=== PATIENT | male | born 1950 | race Caucasian/White ===

== ENCOUNTER → 2020-02-01 15:19 | Outpatient (BNVA) | payer MEDICARE, OTHER, SELFPAY | PROVIDERS: Family Provider Family Medicine; PCP Nurse Practitioner Family; Referring Provider Nurse Practitioner Family; Visit Provider Nurse Practitioner Family | DX: N40.0 Benign prostatic hyperplasia without lower urinary tract symptoms (principal) | CPT/HCPCS: 81001 ==

== ENCOUNTER → 2020-03-01 09:06 | Outpatient (BNVA) | payer MEDICARE, OTHER, SELFPAY | PROVIDERS: Family Provider Family Medicine; PCP Nurse Practitioner Family; Visit Provider Urology | DX: N40.1 Benign prostatic hyperplasia with lower urinary tract symptoms (principal); R10.31 Right lower quadrant pain; R33.9 Retention of urine, unspecified; K40.90 Unilateral inguinal hernia, without obstruction or gangrene, not specified as recurrent; F17.210 Nicotine dependence, cigarettes, uncomplicated | CPT/HCPCS: 81001 ==

== ENCOUNTER → 2020-03-24 11:44 | Outpatient (BNVA) | payer MEDICARE, OTHER, SELFPAY | PROVIDERS: Family Provider Family Medicine; PCP Nurse Practitioner Family; Visit Provider Urology | DX: I48.91 Unspecified atrial fibrillation (principal); R82.71 Bacteriuria; N40.1 Benign prostatic hyperplasia with lower urinary tract symptoms; R33.9 Retention of urine, unspecified | CPT/HCPCS: 80053; 81001; 87077; 87086; 87186 ==

== ENCOUNTER → 2020-03-31 13:34 | Outpatient (BNVA) | payer MEDICARE, OTHER, SELFPAY | PROVIDERS: Family Provider Family Medicine; PCP Nurse Practitioner Family; Visit Provider Urology | DX: Z11.59 Encounter for screening for other viral diseases (principal); N40.1 Benign prostatic hyperplasia with lower urinary tract symptoms | CPT/HCPCS: 87635 ==

== ENCOUNTER 2020-04-04 16:13 | Observation (INO) | payer MEDICARE, OTHER, SELFPAY ==
[2020-04-01 09:59] VITALS: BMI 33.9
--- NOTE | 2020-04-01 10:13 | ECG_ITS ---
[facility] Test Date: 2020-04-01 Pat Name: Gabriel Benjamin Department: Room: Gender: Male Staker Surveying: : 1950 Requested By: Martha Kat Order Number: [id number] [place] MD: Samuel Rodarte M.D. Measurements Intervals [place] Rate: 73 P: NV: -1 QRS: 70 QRSD: 86 T: 32 QT: 364 QTc: 403 Interpretive Statements ATRIAL FIBRILLATION NONSPECIFIC T-WAVE ABNORMALITY ABNORMAL RHYTHM ECG Compared to ECG 09/05/2015 12:26:35 T-wave abnormality now present Sinus rhythm no longer present Electronically Signed On 04-01-2020 20:40:04 CDT by Samuel Rodarte M.D. [id number]
--- NOTE | 2020-04-01 10:31 | ANES.PREANE2 ---
Pre-Anesthetic Assessment Pre-Anesthetic Assessment: Height/Weight: Height 1.8 m Weight 110.223 kg Preop Diagnosis: Refractory BPH/obstruction with elevated PVR Proposed Procedure: Operation Date: 04/04/20 13:25 Proposed Procedures p Cystoscopy 74299 N40.1(Not Applicable) - Osorio Parnell MD s Transurethral Resection/Vaporization Of Prostate(Not Applicable) - Osorio Parnell MD Familial anesthetic complications: Went into afib shortly after they administered anesthesia and they woke him up and did not do surgery and had to send him to hospital (was rotator cuff surgery at a surgery center) Social: Comment: smoke kristine Exam: Pre-Anes Outpt Exam: alert, oriented x 3, clear to auscultation bilaterally and regular rate & rhythm Airway: Cervical ROM: WNL MP: 2 Dentition: Partials CV/HEM: CV/HEM: Afib (on xarelto (stopping today 04/01)) and HTN Comments: has seen paleontological helper for A fib Anesthetic Plan: ASA status: 3 Anesthesia: General Risk of > 500 ml blood loss (7ml/kg in children): No PFSH Anesthesia PFSH: Medical History (Updated 03/28/20 @ 16:36 by Teresita Perkins APRN) Afib BPH loc w urin obs/LUTS Hypertension Surgical History H/O circumcision H/O colonoscopy 1.5 yrs ago H/O repair of rotator cuff Family History Mother , 60's Lung disease Father , 40's- unknown No problems noted. Sister Cancer Brother Hypertension Other Atrial fibrillation Denies family history of Anesthesia complication Bleeding disorder Social History Smoking and tobacco status: current every day smoker Alcohol intake: current Alcohol intake frequency: 0-2 Drinks per Day Last substance use date: 03/01/20 Other details last substance use: marijuana Household members: spouse Marital status: Current occupational status: retired History of recent travel: No Data Anesthesia Cardiac Studies: No Data to Display
[2020-04-04] VITALS (11 sets, daily range): BP systolic 102–131; BP diastolic 55–105; PULSE 74–115; RESP 13–20; TEMP 35.8–36.8; O2SAT 94–100
[2020-04-04] MEDS: sodium chloride 0.9% 1,000 ML 30 ML IV (11:39)
--- NOTE | 2020-04-04 12:00 | ANES.PREANE2 ---
Pre-Anesthetic Assessment Pre-Anesthetic Assessment: Height/Weight: Height 1.8 m Weight 110.223 kg Temp Pulse Resp BP Pulse Ox 98.3 F 88 18 131/85 95 04/04/20 11:21 04/04/20 11:21 04/04/20 11:21 04/04/20 11:21 04/04/20 11:21 Preop Diagnosis: Right inguinal hernia Proposed Procedure: Operation Date: 04/04/20 12:45 Proposed Procedures p Cystoscopy 40914 N40.1(Not Applicable) - Osorio Parnell MD s Transurethral Resection/Vaporization Of Prostate(Not Applicable) - Osorio Parnell MD s Laparoscopic Inguinal Hernia Repair(Right) - Gunnar Arroyo MD Was Beta Jes taken within 24 hours: Yes Last intake: Intake Last Liquid Date 04/04/20 Last Liquid Time 09:13 Last Solid Date 04/03/20 Last Solid Time 20:00 Social: Social History: No alcohol and No tobacco Exam: Pre-Anes Outpt Exam: alert, oriented x 3 and clear to auscultation bilaterally Additional Exam Findings (including area of procedure): Heart is irregularly irregular with controlled Vent Rate; no murmurs, gallops or rubs Airway: Submandibular: WNL Cervical ROM: WNL MP: 2 History/ROS: No significant complaints Pulmonary: Pulmonary: None reported CV/HEM: CV/HEM: Arrythmia and HTN : Comments: Chronic voiding difficulty Hepatic: Hepatic: None reported GI: GI: None reported Metabolic: Metabolic: None reported Musc/skel: Musc/skel: None reported Neuropsych: Neuropsych: None reported Anesthetic Plan: ASA status: 3 Anesthesia: General Meds/Allergies Current Medications: Current Medications Generic Name Dose Route Start Last Admin Trade Name Freq PRN Reason Stop Dose Admin Sodium Chloride 1,000 mls @ 30 ml s/hr 04/04/20 08:15 04/04/20 11:39 Sodium Chloride 0.9% IV 04/05/20 08:14 30 mls/hr .Q24H HUE Administration PFSH Anesthesia PFSH: Medical History (Updated 03/28/20 @ 16:36 by Teresita Perkins APRN) Afib BPH loc w urin obs/LUTS Hypertension Surgical History H/O circumcision H/O colonoscopy 1.5 yrs ago H/O repair of rotator cuff Family History Mother , 60's Lung disease Father , 40's- unknown No problems noted. Sister Cancer Brother Hypertension Other Atrial fibrillation Denies family history of Anesthesia complication Bleeding disorder Social History Smoking and tobacco status: current every day smoker Alcohol intake: current Alcohol intake frequency: 0-2 Drinks per Day Last substance use date: 03/01/20 Other details last substance use: marijuana Household members: spouse Marital status: Current occupational status: retired History of recent travel: No Data Anesthesia Cardiac Studies: No Data to Display
--- NOTE | 2020-04-04 12:09 | W.PM.OPSUD ---
Surgery/Procedure H&P Update DATE OF PROCEDURE: April 04, 2020 DATE H&P PERFORMED: 03/24/20 H&P UPDATE INFORMATION: I have reviewed H&P completed within last 30 days, I have examined patient prior to procedure, Changes to prior documentation as noted here and H&P is in [facility] EMR on date indicated CHANGES TO PREVIOUS DOCUMENTATION: Last dose of Xarelto was 03/31/2020. Reviewed procedure again. He expresses good understanding is ready to proceed. Dr. Arroyo will proceed with hernia repair prior to my portion. PREOP DIAGNOSIS: Right inguinal hernia/refractory BPH with obstruction PLANNED PROCEDURE: Operation Date: 04/04/20 12:45 Proposed Procedures p Cystoscopy 09118 N40.1(Not Applicable) - Osorio Parnell MD s Transurethral Resection/Vaporization Of Prostate(Not Applicable) - Osorio Parnell MD s Laparoscopic Inguinal Hernia Repair(Right) - Gunnar Arroyo MD
--- NOTE | 2020-04-04 12:53 | W.PM.OPSUD ---
Surgery/Procedure H&P Update DATE OF PROCEDURE: April 04, 2020 DATE H&P PERFORMED: 03/11/20 H&P UPDATE INFORMATION: I have reviewed H&P completed within last 30 days, I have examined patient prior to procedure and No changes to prior documentation PREOP DIAGNOSIS: Right inguinal hernia/refractory BPH with obstruction PLANNED PROCEDURE: Operation Date: 04/04/20 12:45 Proposed Procedures p Cystoscopy 07194 N40.1(Not Applicable) - Osorio Parnell MD s Transurethral Resection/Vaporization Of Prostate(Not Applicable) - Osorio Parnell MD s Laparoscopic Inguinal Hernia Repair(Right) - Gunnar Arroyo MD
[2020-04-04] MEDS: levofloxacin-dextrose 5 % 500 MG/100 ML PREMIX 100 MG IV (13:22)
--- NOTE | 2020-04-04 14:27 | PM.OP ---
Operative Report Date of procedure: April 04, 2020 Pre-op Diagnosis: Right inguinal hernia/refractory BPH with obstruction Post-op diagnosis: same Procedure Done: Cystoscopy, transurethral resection/vaporization of the prostate Specimens removed/disposition: Prostatic chips Pathology: Prostatic chips Surgeon: Soheila Anesthesia: General Estimated blood loss: Less than 50 cc. Urine output: Not measured Complications: None Findings: Huge prostate. Large intravesically protruding median lobe. Chronic severe trabeculation. Wide open the completion of the procedure with meticulous hemostasis. Condition: stable Disposition: PACU Brief History: Gabriel is a 69-year-old white male with a history of progressive bladder outlet obstructive symptoms secondary to BPH Cystoscopy revealed a huge prostate with large intravesically protruding median lobe and severely trabeculated bladder. He was also found to have a symptomatic hernia and really wanted that fixed and ultimately decided to pursue both at the same time under the same anesthesia. Procedure: After routine preoperative evaluation examination and obtaining of informed consent he was taken to the operating suite on 04/04/2020 where general anesthesia was administered without difficulty after appropriate timeout was performed, SCDs confirmed to be functioning, preoperative antibiotics administered, beta-loli protocol confirmed. Dr. Arroyo performed his laparoscopic hernia repair. See his dictation under separate cover After completion of Dr. Arroyo procedure the patient was reprepped and draped in usual sterile fashion in dorsolithotomy position. Careful attention was paid to avoiding pressure points. 21 Bahamian cystoscope with 30 degree lens was introduced into the urethra meatus and advanced into the bladder under videoscopy. Bladder was systematically examined and the findings described above were noted. The orifices were easily identified. Urethra was then calibrated with Yokasta sounds and easily accommodated 30 Bahamian. 2% lidocaine jelly was instilled into the urethra then a 25 Bahamian continuous flow resectoscope sheath with visual obturator in place was advanced into the bladder without difficulty. The gyrus bipolar system was utilized for resection with the supersect and the button probe. Resection was begun at the large intravesically protruding median lobe. Lateral resection of the lobe with visualization of the orifices was initially conducted. The lobe was then resected from the most anterior aspect down to the circular fibers of the bladder neck for completion. This was carried into the floor the prostate. The orifices were confirmed to be well away from resection throughout the procedure. The left lateral lobe was then resected beginning at the 12 o'clock position from the bladder neck out to the verumontanum. Deep trough was made anteriorly and then resection was conducted from the 12:00 down to the 5 o'clock position in the same longitudinal extent and depth down to the surgical capsule. The right lateral lobe was then resected in the same fashion. There remained a large amount of posterior floor tissue and this was resected in the same fashion with the supersect. Chips were all evacuated from the bladder. The button probe was used then to vaporize a fair amount of tissue is well out to but not distal to the verumontanum, further opening of the bladder neck, and posterior and lateral lobe residual tissue. Hemostasis was visually confirmed. Bladder was drained with a 22 Bahamian three-way Echevarria catheter 30 cc placed in the balloon and irrigation confirmed no clots and clear efflux. Tolerated the procedure well without complications and was awakened in the operating room and returned to the recovery room in stable condition. Light CBI was continued with clear reflux with flow rate. PLANS: 1. Admit to observation status. 2. Pending status of urine tomorrow catheter might be removed for voiding trial or potentially send him home with catheter in place for couple days for further healing before voiding trial in the clinic.
[2020-04-04] MEDS: lidocaine 2% Urojet 20 mL TOPICAL (15:00)
--- NOTE | 2020-04-04 16:22 | PM.PACU ---
PACU note PACU note: VSS, good respiratory effort Post-Anesthesia Exam: awake Disposition: admitted
--- NOTE | 2020-04-04 16:56 | P.OP_ITS ---
Operative Report Date of procedure: April 04, 2020 Pre-op Diagnosis: Right inguinal hernia/refractory BPH with obstruction Post-op Findings: Indirect reducible right inguinal hernia Procedure Done: Laparoscopic total extraperitoneal repair of right indirect inguinal hernia with surgimax 3D mesh measuring 11 x 16 cm Excision of lipoma of the spermatic cord Pathology: none sent Surgeon: Gunnar Arroyo Anesthesia: General Condition: stable Disposition: PACU Procedure: The patient was taken to the operating room. After IV antibiotic was administered, the abdomen was prepped and draped in a sterile manner. Using a 15 blade, a 1.0 cm transverse incision was made infraumbilically on the right side. Subcutaneous tissue was divided using electrocautery and the anterior rectus sheath divided using an 11 blade. The rectus muscle was retracted l aterally and the extraperitoneal space identified. A 11 mm port was placed and 12 mm of pneumoperitoneum was created. A 10 mm 30? scope was introduced and the retrorectus space was opened using the camera up to the pubic symphysis and 5 mm ports were placed in the midline, one 2-fingerbreadths above the pubic symphysis and the other midway between these two ports under direct visualization. Blunt dissection was carried out to open up the tissue in the midline and to the pubic symphysis, which was identified. The dissection was then carried laterally where the iliopubic tract was identified. There was no femoral, obturator or direct hernia noted. The inferior epigastric artery was identified and dissection was carried posterior to it and laterally, the space was opened up to the level of the umbilicus superior to the anterior superior iliac spine. I then proceeded to dissect out the spermatic cord and the indirect hernial sac was reduced. There was a lipoma of the spermatic cord which was excised. 16 x 11cm Surgimax 3D mesh was rolled and introduced through the 10 mm port and then rolled laterally and apposed well against the abdominal wall to cover the myopectineal orifice completely. the mesh was secured to the abdominal wall with Securestraps. 10 Cc of 0.5% Marcaine was infiltrated into the preperitoneal space. The extraperitoneal space was desufflated under direct visualization to ensure no slippage of hernial sac under the mesh. All ports were removed, the anterior rectus fascia at the infraumbilical port closed using figure of eight 0 Vicryl sutures, subcutaneous tissue approximated using 3-0 Vicryl sutures and skin at all three port sites were closed using running subcuticular 4-0 Monocryl sutures and Dermabond. 10 mL of 0.5% Marcaine was infiltrated at the port sites. The patient was stable throughout the procedure. Please refer to Dr. Parnell's note for the rest of the procedure
[2020-04-04] MEDS: dextrose 5%-ns + KCl 20 20 MEQ/1,000 ML BAG 50 MEQ IV (17:15)
[2020-04-04] MEDS: sulfamethoxazole-trimeth DS 160-800 mg Tablet 1 TAB PO (17:27)
[2020-04-04] MEDS: HYDROcodone-acetaminophen 5-325 mg Tablet 1 TAB PO ×2 (17:38→23:00)
--- NOTE | 2020-04-04 17:59 | PC.NURSE ---
2 stabs noted to lower medial abdomen and 1 incision noted to umbilical. all incisions open to air.
[2020-04-05] VITALS: BP 104/70; PULSE 87; RESP 18; TEMP 36.3; O2SAT 98
--- NOTE | 2020-04-05 00:21 | PC.NURSE ---
CBI WAS STARTED BY SURGERY, NO DOCUMENTATION WAS DONE, AND THEN THE SAME BAGS FROM THE DAY FINISHED UP ON MOVER, SO THE OUTPUT MAY NOT BE EXACTLY ACCURATE.
[2020-04-05 04:00] VITALS: BP 101/72; PULSE 97; RESP 18; TEMP 36.5; O2SAT 97
[2020-04-05] MEDS: HYDROcodone-acetaminophen 5-325 mg Tablet 1 TAB PO ×3 (05:23→18:33)
--- NOTE | 2020-04-05 07:29 | ANE.PACU2 ---
Inpatient post-anesthesia follow up: Airway intact: Yes Vital signs: Temperature 97.7 F Pulse Rate 97 Respiratory Rate 18 Blood Pressure 101/72 Pulse Oximetry 97 Oxygen Delivery Me thod Room Air Oxygen Flow Rate 8 Fraction of Inspir ed Oxygen Hydration adequate: Yes Nausea and vomiting: No Pain level: 1 Mental status: Baseline
[2020-04-05 07:30] VITALS: BP 101/71; PULSE 88; RESP 18; TEMP 37.1; O2SAT 96
[2020-04-05] MEDS: metoprolol succinate ER (24 HR) 100 mg Tablet PO (08:38)
[2020-04-05] MEDS: tamsulosin 0.4 mg Capsule 0.8 MG PO (08:38)
[2020-04-05] MEDS: finasteride 5 mg Tablet PO (08:38)
[2020-04-05] MEDS: sulfamethoxazole-trimeth DS 160-800 mg Tablet 1 TAB PO ×2 (08:38→17:43)
[2020-04-05] MEDS: hydroCHLOROthiazide 25 mg Tablet 12.5 MG PO (08:38)
[2020-04-05] MEDS: timolol 0.5% Op Soln 5 mL Btl 1 DROP EYEAFF (09:25)
--- NOTE | 2020-04-05 09:57 | PC.CHAP ---
Pastoral Care Encounter/Spiritual Assessment Type of Contact [] Declined fortune teller visit [] Patient/Family/Request visit [] Outpatient visit [] Follow-up visit [] Physician referral [] Code/Alert [x] Routine visit [] Staff referral [] Actively dying [] Patient sleeping [] Family support [] [] Out of room [] Palliative care [] [] Receiving care in room [] Pre-surgical visit [] Trauma [] Long length of stay [] ICU visit [] Other: Relational/Emotional Strength [] Patient feels connected with others/family/visitors/staff [] Distress [] Loneliness/isolation [] Abandonment Spirituality of Patient [] Person of Jolie [] Attends Jain of their Jolie [] Believes in Prayer [] Reads Bible or Spiritism materials [] There are Spiritual issues to be addressed Aircraft Armament Mechanic Interventions [x] Prayer [x] Active listening [x] Non-anxious presence [x Spiritual/emotional support [] Crisis/trauma care [] Spiritual counseling [] Bereavement support [] Provided bereavement packet [] Provided Bible/devotional materials [] Provided toy/stuffed animal, coloring book to patient or family member [] Provided Communion [] Anointing/Fowler [] Salvation [x] Completed spiritual assessment [] Other: Impact on Illness or Injury [] Angry [] Fearful [] Anxious [] Often cries [] Exhaustion [] Unable to work [] Unable to attend denominational [] Unable to walk/stand [] Unable to read [] Unable to drive [] Unable to eat/drink [] Unable to sleep [] Unable to be with family [] Patient intubated [] Other: Summary doing better. wants to go home Time spent with patient 10 min
[2020-04-05 11:35] VITALS: BP 104/78; PULSE 84; RESP 18; TEMP 36.6; O2SAT 97
[2020-04-05 15:10] VITALS: BP 103/71; PULSE 90; RESP 18; TEMP 36.9; O2SAT 95
--- NOTE | 2020-04-05 18:18 | PM.DCS ---
Discharge Providers Date of Admission: 04/04/20 16:13 Date of Discharge: April 05, 2020 Attending Provider at Admission: Osorio Parnlel MD Attending Provider at Discharge: Osorio Parnell MD Primary Care Provider: Jayda Matrin NP Diagnoses at Discharge Discharge Diagnosis (1) BPH loc w urin obs/LUTS: Status: Acute Problem details: TURP 04/04/2020. (2) Right inguinal hernia: Status: Acute Problem details: Repaired laparoscopically by Dr. Arroyo on 04/04/2020 (3) Incomplete bladder emptying: Status: Acute Problem details: Secondary to BPH/obstruction Reason for Visit Reason for Visit: cystoscopy Hospital Course Discharge Summary: The operative procedures went well. On postoperative day #1 his Echevarria catheter was removed and he voided spontaneously with clearing urine and good emptying. Discharge on the evening of postoperative day #1 in stable condition. To hold Xarelto until 04/07/2020 evening. If urine becomes bloody to hold longer. Call has been encouraged if he has any questions. Physical Exam Const: COMMON NORMALS: no acute distress, alert and well nourished GENERAL APPEARANCE: well kempt and well developed ORIENTATION/CONSCIOUSNESS: not confused Resp: COMMON NORMALS: normal respiratory effort EFFORT & INSPECTION: No labored and No Actively coughing Neuro: SENSORIUM/ORIENTATION: Yes alert Psych: COMMON NORMALS: mental status grossly normal APPEARANCE: Yes grossly normal and Yes well kempt ATTITUDE: Yes calm and Yes engaged Urinary Catheter Management^: 3-way Urethral CBI: Cath Placed During This Visit: yes, but has since been removed by the nurse Reason for Continuing Indwelling Catheter: Other Urinary Catheter Date of Insertion: 04/04/20 Urinary Catheter Time of Insertion: 16:06 Date Urinary Catheter Removed: 04/05/20 Time Urinary Catheter Discontinued: 08:13 Discharge Data Data Completed and Pending: Pending at discharge Category Date Time Status Pathology: Surgic al [PTH] Routine Pth 04/04/20 16:21 Received Vitals: Last Vital Signs Temp 98.5 F 04/05/20 15:10 Pulse 90 04/05/20 15:10 Resp 18 04/05/20 15:10 BP 103/71 04/05/20 15:10 Pulse Ox 95 04/05/20 15:10 Discharge Plan Discharge Patient Disposition: Home Condition: Stable Prescriptions: New Rumney 5-325 mg tablet 1 tab PO Q8H PRN (Reason: pain) Qty: 2 RF: 0 Continued timolol 0.5 % drops 1 drop ophthalmic (eye) DAILY RF: 0 latanoprost 0.005 % drops 1 drop ophthalmic (eye) DAILY RF: 0 hydrochlorothiazide 12.5 mg tablet 12.5 mg PO DAILY RF: 0 metoprolol succinate 100 mg tablet extended release 24 hr 100 mg PO DAILY RF: 0 finasteride 5 mg tablet 5 mg PO QDAY Qty: 90 RF: 3 tamsulosin 0.4 mg capsule 0.8 mg PO DAILY Qty: 180 RF: 3 sulfamethoxazole-trimethoprim 800-160 mg tablet 1 tab PO BID Qty: 20 RF: 0 Held Xarelto 20 mg tablet 20 mg PO DAILY RF: 0 Hold Instructions: Resume on 04/07/20. If the urine starts to become bloody hold again after that date Discharge Orders: Discharge Order (Routine); Ordered 04/05/20 Ordered By: Osorio Parnell Referrals: Osorio Parnell MD [Physician] - 6 Weeks Gunnar Arroyo MD [Physician] - 2 weeks Discharge Diet: Usual diet Discharge Activity: Limit activity as instructed Activity Restrictions/Additional Instructions: 1. Up and walking as tolerated. 2. Ok to shower in 48 hours after surgery. 3. Remove Dermabond dressing in 7-10 days. 4. Do not lift more than 10 pounds. 5. Do not operate heavy machinery or drive while using pain medications. 6. Advised to return to ER or contact my office if there are any signs of infection like, increasing pain, fevers, chills, redness or drainage of pus. UROLOGY: 1. Can start the Xarelto daily dose on evening. If the urine becomes bloody hold until it clears. 2. Please call if you have any concerns or questions. Discharge Attestations Time Spent in Discharge Care*: less than 30 min Quality Metrics Clinical Quality Measures During this hospital stay, did patient experience: None Coding Level of Care Code Acute [facility] Justice for Luisg Fwd Diagnoses BPH loc w urin obs/LUTS N40.1 Right inguinal hernia K40.90 Incomplete bladder emptying R33.9
[2020-04-05 18:55] VITALS: BP 103/71; PULSE 90; RESP 18; TEMP 36.9; O2SAT 95
--- NOTE | 2020-04-06 09:54 | PC.RESP ---
SMOKING CESSATION INFORMATION SENT TO PATIENT.
== END 2020-04-05 19:00 | disposition home or self-care (01) ==
LOC: MEDSURG 16:13
PROVIDERS: Surgery; Admitting Provider Urology; PCP Nurse Practitioner Family; Visit Provider Urology
PROC: 0TJB8ZZ Inspection of Bladder, Via Natural or Artificial Opening Endoscopic (ICD-10-PCS; CPT 52000; principal; 2020-04-04 12:45)
PROC: 0VT08ZZ Resection of Prostate, Via Natural or Artificial Opening Endoscopic (ICD-10-PCS; CPT 52601; 2020-04-04 12:45)
PROC: (CPT 49650; 2020-04-04 12:45)
DX: K40.90 Unilateral inguinal hernia, without obstruction or gangrene, not specified as recurrent (principal); N40.1 Benign prostatic hyperplasia with lower urinary tract symptoms; N13.8 Other obstructive and reflux uropathy; R33.9 Retention of urine, unspecified; I10 Essential (primary) hypertension
CPT/HCPCS: 49650; 52601; 12345; 88305; 93005; C1781; G0378; J1100; J1956; J2370; J2405; J2704; J2710; J3010; J3490; J7030

== ENCOUNTER → 2021-06-06 16:25 | Outpatient (BNVA) | payer MEDICARE, OTHER, SELFPAY | PROVIDERS: PCP Nurse Practitioner Family; Visit Provider Urology | DX: N40.1 Benign prostatic hyperplasia with lower urinary tract symptoms (principal) | CPT/HCPCS: 81003 ==

== ENCOUNTER → 2022-07-11 10:37 | Outpatient (BNVA) | payer MEDICARE, OTHER, SELFPAY | PROVIDERS: PCP Nurse Practitioner Family; Visit Provider Podiatrist Foot & Ankle Surgery | DX: M79.671 Pain in right foot (principal); M79.672 Pain in left foot; M20.21 Hallux rigidus, right foot; M20.22 Hallux rigidus, left foot; M77.52 Other enthesopathy of left foot and ankle; M77.51 Other enthesopathy of right foot and ankle | CPT/HCPCS: 73630; 99204 ==

== ENCOUNTER → 2022-08-15 09:59 | Outpatient (BNVA) | payer MEDICARE, OTHER, SELFPAY | PROVIDERS: PCP Nurse Practitioner Family; Visit Provider Podiatrist Foot & Ankle Surgery | DX: M20.21 Hallux rigidus, right foot (principal); M20.22 Hallux rigidus, left foot; M77.52 Other enthesopathy of left foot and ankle; M77.51 Other enthesopathy of right foot and ankle | CPT/HCPCS: 99213 ==

== ENCOUNTER → 2022-09-07 08:26 | Outpatient (BNVA) | payer MEDICARE, OTHER, SELFPAY | PROVIDERS: PCP Nurse Practitioner Family; Visit Provider Podiatrist Foot & Ankle Surgery | DX: M20.21 Hallux rigidus, right foot (principal); M20.22 Hallux rigidus, left foot; M77.52 Other enthesopathy of left foot and ankle; M77.51 Other enthesopathy of right foot and ankle | CPT/HCPCS: 99213 ==

== ENCOUNTER 2022-10-03 09:27 | Outpatient (CLI) | payer MEDICARE, OTHER, SELFPAY ==
--- NOTE | 2022-10-03 09:52 | USCV_ITS ---
Gabriel Benjamin Age: 72 Gender: M : 1950 Exam Date: 10/03/2022 10:16 Ordering Phys: Jayda Martin NP Technologist: Henok Eden [place] [facility] [place] aaa HISTORY: Diameter (cm) AP x Transverse x Length Velocity (cm/s) Waveform Prox Aorta: 2.61 x 2.75 x 69.40 Biphasic Mid Aorta: 2.16 x 2.33 x 57.80 Biphasic Distal Aorta: 1.91 x 1.91 x 54.50 Biphasic Right Iliac Prox: 1.16 x 1.28 x 60.30 Biphasic Left Iliac Prox: 1.43 x 1.26 x 60.30 Biphasic Stent Prox Landing x x Aneurysmal Sac Max x x Lt Lat Sac Dim Rt Lat Sac Dim Stent Dist Landing x x Right Iliac Stent x x Left Iliac Stent x x Right Renal Art Left Renal Art FINDINGS: Comparison: none available. No evidence of abdominal aortic or bilateral iliac aneurysm. Ectatic abdominal aorta with evidence of atherosclerotic plaque noted. There is evidence of atherosclerotic plaque no significan stenosis in the right common iliac artery. There is evidence of atherosclerotic plaque no significan stenosis in the left common iliac artery. CONCLUSIONS Ectatic abdominal aorta with evidence of atherosclerotic plaque noted. No evidence of abdominal aortic aneurysm. Dr. Gloria Oconnell DO (Electronically Signed) Final Date: 03 October 2022 14:50 S
== END 2022-10-03 09:28 | disposition home or self-care (01) ==
PROVIDERS: PCP Nurse Practitioner Family; Visit Provider Nurse Practitioner Family
DX: Z13.6 Encounter for screening for cardiovascular disorders (principal); I10 Essential (primary) hypertension; Z87.891 Personal history of nicotine dependence
CPT/HCPCS: 76706

== ENCOUNTER 2022-12-20 14:27 | Outpatient (CLI) | payer MEDICARE, OTHER, SELFPAY ==
--- NOTE | 2022-12-20 14:38 | CT_ITS ---
WS: [id number] LDCT LUNG CANCER SCREENING TECHNIQUE: Noncontrast CT of the chest with coronal and sagittal reformatted images. CLINICAL INFORMATION: PERSONAL HISTORY OF NICOTINE DEPENDENCE COMPARISON: None. DLP: 96.79 mGy.cm DIvol: Mean CTDIvol: 2.10 (mGy) All CT scans at [facility] use at least one of these dose optimization techniques: automat ed exposure control; mA and/or kV adjustment per patient size (includes targeted exams where dose is matched to clinical indication); or iterative reconstruction. FINDINGS: Normal caliber thoracic aorta. No mediastinal or hilar lymphadenopathy. Coronary calcification. Tiny esophageal hiatal hernia. Small hepatic cyst in the dome the liver. Adrenal glands are normal. LEFT r enal cortical scarring. Low-attenuation lesion LEFT kidney partially visualized measuring 2.0 x 1.7 c m. Recommend renal ultrasound for further evaluation. Moderate thoracic curve. Hypertrophic changes thoracic spine.Hazy atelectasis LEFT lower lobe and keisha gula. Nodularity along the RIGHT minor fissure. CT/CT lung screening [id number] IMPRESSION:Low-attenuation lesion LEFT kidney partially visualized measuring 2. 0 x 1.7 cm. Recommend renal ultrasound for further evaluation. LUNG-RADS: 2S-Benign Appearance or Behavior with Significant Findings FOLLOW UP: 12 Month: Continue annual screening with LDCT
== END 2022-12-20 14:28 | disposition home or self-care (01) ==
PROVIDERS: PCP Nurse Practitioner Family; Visit Provider Nurse Practitioner Family
DX: Z12.2 Encounter for screening for malignant neoplasm of respiratory organs (principal); Z87.891 Personal history of nicotine dependence; N28.9 Disorder of kidney and ureter, unspecified
CPT/HCPCS: 71271

== ENCOUNTER 2023-03-01 09:33 | Outpatient (CLI) | payer MEDICARE, OTHER, SELFPAY ==
--- NOTE | 2023-03-01 09:41 | US_ITS ---
WS: [id number] RENAL ULTRASOUND HISTORY: DISORDER OF KIDNEY URETER COMPARISON: 10/30/2005 TECHNIQUE: 2-D and color Doppler imaging of the kidney submitted. Right kidney: 10.1 cm x 4.4 cm x 5.1 cm. Cortex: 1.0 cm Normal echogenicity with no hydronephrosis or mass. Left kidney: 10.8 cm x 3.8 cm x 5.4 cm. Cortex: 1.5 cm Normal size kidney. Cortical cyst upper pole measures 2.0 x 2.0 x 2.1 cm. This cyst was also describe d on the prior study from 2005. No solid mass or obstruction. Aorta: Normal. Urinary Bladder: Nondistended Mildly heterogeneous prostate gland measuring 3.4 x 3.0 x 4.1 cm. IMPRESSION: 1. No solid renal mass or hydronephrosis. 2. Stable simple cyst upper pole LEFT kidney.
== END 2023-03-01 09:34 | disposition home or self-care (01) ==
LOC: RAD 09:36
PROVIDERS: PCP Nurse Practitioner Family; Visit Provider Nurse Practitioner Family
DX: N28.9 Disorder of kidney and ureter, unspecified (principal); N28.1 Cyst of kidney, acquired
CPT/HCPCS: 76770

== ENCOUNTER → 2024-02-20 10:33 | Outpatient (BNVA) | payer MEDICARE, OTHER, SELFPAY | PROVIDERS: PCP Nurse Practitioner Family; Referring Provider Family Medicine; Visit Provider Surgery | DX: K92.2 Gastrointestinal hemorrhage, unspecified (principal); Z86.010 Personal history of colon polyps | CPT/HCPCS: 99204 ==

== ENCOUNTER 2024-04-01 08:32 | Day surgery (SDC) | payer MEDICARE, OTHER, SELFPAY ==
[2024-04-01 08:40] VITALS: BP 140/98; PULSE 75; RESP 18; TEMP 36.1; O2SAT 95; BMI 31.8
[2024-04-01] MEDS: sodium chloride 0.9% 1,000 ML 30 ML IV (08:55)
--- NOTE | 2024-04-01 09:45 | P.HP_ITS ---
Providers/Chief Complaint Primary Care Provider: Sirisha Stubbs MD Chief Complaint: K92.2 History of Present Illness Gabriel Benjamin is a 73 year old male Review of Systems General: Reports: 10 or more systems reviewed and unremarkable except in HPI and below Medications/Allergies Home Medications Medication Instructions Recorded Confirmed Last Taken Type hydrochlorothiazide 12.5 mg tablet 12.5 mg PO DAILY 02/01/20 04/01/24 03/31/24 History latanoprost 0.005 % eye drops 1 drop ophthalmic (eye) DAILY 02/01/20 04/01/24 03/31/24 History metoprolol succinate 100 mg 100 mg PO DAILY 02/01/20 04/01/24 04/01/24 History tablet,extended release 24 hr rivaroxaban 20 mg tablet (Xarelto) 20 mg PO DAILY 02/01/20 04/01/24 03/30/24 History timolol 0.5 % eye drops 1 drop ophthalmic (eye) DAILY 02/01/20 04/01/24 04/01/24 History hydrocortisone 2.5 % topical cream 1 applic MA QID PRN hemorrhoids 3 02/20/24 04/01/24 03/31/24 Rx with perineal applicator weeks #30 grams (Anusol-HC) Allergies Allergy/AdvReac Type Severity Reaction Status Date / Time No Known Allergies Allergy Verified 04/01/24 08:47 PFSH Acute PFSH: Medical History (Updated 02/20/24 @ 11:28 by Vikash Webster DO) History of colon polyps BPH loc w urin obs/LUTS TURP 04/04/2020. Hypertension Afib Surgical History (Updated 02/20/24 @ 11:28 by Vikash Webster DO) Hx of colonoscopy with polypectomy Status post recent transurethral resection of prostate Status post right inguinal hernia repair H/O colonoscopy 1.5 yrs ago H/O circumcision H/O repair of rotator cuff Family History Mother , 60's Lung disease Father , 40's- unknown No problems noted. Sister Cancer Brother Hypertension Other Atrial fibrillation Denies family history of Anesthesia complication Bleeding disorder Social History Smoking and tobacco/nicotine status: unknown if used tobacco/nicotine Alcohol intake: current Alcohol intake frequency: 0-2 Drinks per Day Substance/Drug Use: never Household members: spouse Marital status: Current occupational status: retired Vitals/I&O/Wt Last Vital Signs Temp 97.0 F L 04/01/24 08:40 Pulse 75 04/01/24 08:40 Resp 18 04/01/24 08:40 BP 140/98 04/01/24 08:40 Pulse Ox 95 04/01/24 08:40 O2 Del Method Room Air 04/01/24 08:40 Weight last 48 hrs Weight 228 lb A&P Assessment and plan (1) GI bleed: (2) History of colon polyps: Plan EGD and colonoscopy Attestations Medical Necessity Statement*: Home Coding Level of Care Code Acute Code for [facility] Fwd Diagnoses GI bleed K92.2 History of colon polyps Z86.010
--- NOTE | 2024-04-01 09:46 | ANES.PREANE2 ---
Pre-Anesthetic Assessment Height/Weight: Height 1.8 m Weight 103.419 kg Temp Pulse Resp BP Pulse Ox O2 Del Method 97.0 F L 75 18 140/98 95 Room Air 04/01/24 08:40 04/01/24 08:40 04/01/24 08:40 04/01/24 08:40 04/01/24 08:40 04/01/24 08:40 Preop Diagnosis: screening Operation Date: 04/01/24 09:30 Proposed Procedures p EGD- 84709,12302,G0105, K92.2,(Not Applicable) - Vikash Webster DO s Colonoscopy(Not Applicable) - Vikash Webster DO Familial anesthetic complications: noone Was Beta Jes taken within 24 hours: N/A Was Clonidine taken within 24 hours: N/A Last intake: Intake Last Liquid Date 03/31/24 Last Liquid Time 20:00 Last Solid Date 03/30/24 Last Solid Time 19:00 Social No alcohol MJ daily a joint or two Exam alert and oriented x 3 Airway Submandibular: within normal limits Cervical ROM: within normal limits Mallampati: Class I Dentition: partials History/ROS No significant history except as noted Pulmonary Shortness of Breath (baseline) CV/HEM Atrial Fibrillation and Hypertension None reported Hepatic None reported GI None reported Metabolic None reported Musc/skel None reported Neuropsych None reported Anesthetic Plan ASA status: 3 Anesthesia: Anesthesia Evaluation, General and MAC Medications/Allergies Home Medications Medication Instructions Recorded Confirmed Last Taken Type hydrochlorothiazide 12.5 mg tablet 12.5 mg PO DAILY 02/01/20 04/01/24 03/31/24 History latanoprost 0.005 % eye drops 1 drop ophthalmic (eye) DAILY 02/01/20 04/01/24 03/31/24 History metoprolol succinate 100 mg 100 mg PO DAILY 02/01/20 04/01/24 04/01/24 History tablet,extended release 24 hr rivaroxaban 20 mg tablet (Xarelto) 20 mg PO DAILY 02/01/20 04/01/24 03/30/24 History timolol 0.5 % eye drops 1 drop ophthalmic (eye) DAILY 02/01/20 04/01/24 04/01/24 History Allergies Allergy/AdvReac Type Severity Reaction Status Date / Time No Known Allergies Allergy Verified 04/01/24 08:47 Current Medications Generic Name Dose Route Start Last Admin Trade Name Sarojq PRN Reason Stop Dose Admin Sodium Chloride 1,000 mls @ 30 mls/hr 04/01/24 08:45 04/01/24 08:55 Sodium Chloride 0.9% IV 04/02/24 08:44 30 mls/hr .Q24H HUE Administration PFSH Anesthesia Medical History (Updated 02/20/24 @ 11:28 by Vikash Webster DO) History of colon polyps BPH loc w urin obs/LUTS TURP 04/04/2020. Hypertension Afib Surgical History (Updated 02/20/24 @ 11:28 by Vikash Webster DO) Hx of colonoscopy with polypectomy Status post recent transurethral resection of prostate Status post right inguinal hernia repair H/O colonoscopy 1.5 yrs ago H/O circumcision H/O repair of rotator cuff Family History Mother , 60's Lung disease Father , 40's- unknown No problems noted. Sister Cancer Brother Hypertension Other Atrial fibrillation Denies family history of Anesthesia complication Bleeding disorder Social History Smoking and tobacco/nicotine status: unknown if used tobacco/nicotine Alcohol intake: current Alcohol intake frequency: 0-2 Drinks per Day Substance/Drug Use: never Household members: spouse Marital status: Current occupational status: retired Data Anesthesia Cardiac Studies: No Data to Display
[2024-04-01 10:23] VITALS: BP 170/123; PULSE 85; RESP 18; TEMP 36.2; O2SAT 98
[2024-04-01 10:33] VITALS: BP 152/120; PULSE 97; RESP 18; O2SAT 96
--- NOTE | 2024-04-01 10:38 | ANE.PACU2 ---
Inpatient post-anesthesia follow up: Airway intact: Yes Vital signs: Temperature 97.2 F Pulse Rate 97 Respiratory Rate 18 Blood Pressure 152/120 Pulse Oximetry 96 Oxygen Delivery Me thod Room Air Oxygen Flow Rate Fraction of Inspir ed Oxygen Hydration adequate: Yes Nausea and vomiting: No Pain level: 1 Mental status: Baseline
[2024-04-01 10:42] VITALS: BP 135/90; PULSE 96; RESP 18; O2SAT 96
== END 2024-04-01 11:00 | disposition home or self-care (01) ==
PROVIDERS: PCP Family Medicine; Visit Provider Surgery
PROC: 0DJ08ZZ Inspection of Upper Intestinal Tract, Via Natural or Artificial Opening Endoscopic (ICD-10-PCS; CPT 43235; principal; 2024-04-01 09:30)
PROC: 0DJD8ZZ Inspection of Lower Intestinal Tract, Via Natural or Artificial Opening Endoscopic (ICD-10-PCS; CPT 45378; 2024-04-01 09:30)
DX: D12.2 Benign neoplasm of ascending colon (principal); K63.89 Other specified diseases of intestine; K29.70 Gastritis, unspecified, without bleeding; Z86.0100 Personal history of colon polyps, unspecified; N40.1 Benign prostatic hyperplasia with lower urinary tract symptoms; N13.8 Other obstructive and reflux uropathy; I10 Essential (primary) hypertension; I48.91 Unspecified atrial fibrillation
CPT/HCPCS: 43239; 45385; 88305; J2704; J3490; J7030

== ENCOUNTER → 2024-04-17 10:20 | Outpatient (BNVA) | payer MEDICARE, OTHER, SELFPAY | PROVIDERS: PCP Family Medicine; Visit Provider Surgery | DX: Z09 Encounter for follow-up examination after completed treatment for conditions other than malignant neoplasm (principal); K92.2 Gastrointestinal hemorrhage, unspecified; D37.4 Neoplasm of uncertain behavior of colon | CPT/HCPCS: 99214 ==

== ENCOUNTER 2024-05-13 06:15 | Day surgery (SDC) | payer MEDICARE, OTHER, SELFPAY ==
[2024-05-13 06:28] VITALS: BP 110/94; PULSE 66; RESP 18; TEMP 36.2; O2SAT 98; BMI 31.8
[2024-05-13] MEDS: sodium chloride 0.9% 1,000 ML 30 ML IV (06:39)
--- NOTE | 2024-05-13 07:09 | ANES.PREANE2 ---
Pre-Anesthetic Assessment Height/Weight: Height 1.8 m Weight 103.419 kg Temp Pulse Resp BP Pulse Ox O2 Del Method 97.1 F L 66 18 110/94 98 Room Air 05/13/24 06:28 05/13/24 06:28 05/13/24 06:28 05/13/24 06:28 05/13/24 06:28 05/13/24 06:28 Preop Diagnosis: Polyp survailance Operation Date: 05/13/24 07:30 Proposed Procedures p Colonoscopy 69238, G0105, D12.6(Not Applicable) - Vikash Webster DO Familial anesthetic complications: none Was Beta Jes taken within 24 hours: N/A Was Clonidine taken within 24 hours: N/A Last intake: Intake Last Liquid Date 05/13/24 Last Liquid Time 05:30 Last Solid Date 05/11/24 Last Solid Time 12:00 Social Alcohol and Tobacco Marijuana use daily and beer twice per week Exam alert, oriented x 3, clear to auscultation bilaterally and regular rate & rhythm Airway Submandibular: within normal limits Cervical ROM: within normal limits Mallampati: Class II Dentition: partials History/ROS No significant history except as noted and No significant complaints Pulmonary Shortness of Breath SOB with activity CV/HEM Atrial Fibrillation and Hypertension None reported Hepatic None reported GI None reported Metabolic None reported Musc/skel None reported Neuropsych None reported Anesthetic Plan ASA status: 3 Anesthesia: MAC Risk of > 500 ml blood loss (7ml/kg in children): No Medications/Allergies Home Medications Medication Instructions Recorded Confirmed Last Taken Type hydrochlorothiazide 12.5 mg tablet 12.5 mg PO DAILY 02/01/20 05/13/24 05/13/24 History latanoprost 0.005 % eye drops 1 drop ophthalmic (eye) DAILY 02/01/20 05/13/24 05/13/24 History (Xalatan) metoprolol succinate 100 mg 100 mg PO DAILY 02/01/20 05/13/24 05/13/24 History tablet,extended release 24 hr rivaroxaban 20 mg tablet (Xarelto) 20 mg PO DAILY 02/01/20 05/13/24 05/09/24 History timolol 0.5 % eye drops 1 drop ophthalmic (eye) BID 02/01/20 05/13/24 05/13/24 History lisinopril 10 mg tablet 10 mg PO DAILY 05/11/24 05/13/24 05/13/24 History Allergies Allergy/AdvReac Type Severity Reaction Status Date / Time No Known Allergies Allergy Verified 05/11/24 15:34 Current Medications Generic Name Dose Route Start Last Admin Trade Name Pavan PRN Reason Stop Dose Admin Sodium Chloride 1,000 mls @ 30 mls/hr 05/13/24 06:30 05/13/24 06:39 Sodium Chloride 0.9% IV 05/14/24 06:29 30 mls/hr .Q24H HUE Administration PFSH Anesthesia Medical History History of colon polyps BPH loc w urin obs/LUTS TURP 04/04/2020. Hypertension Afib Surgical History Hx of colonoscopy with polypectomy Status post recent transurethral resection of prostate Status post right inguinal hernia repair H/O colonoscopy 1.5 yrs ago H/O circumcision H/O repair of rotator cuff Family History Mother , 60's Lung disease Father , 40's- unknown No problems noted. Sister Cancer Brother Hypertension Other Atrial fibrillation Denies family history of Anesthesia complication Bleeding disorder Social History Smoking and tobacco/nicotine status: unknown if used tobacco/nicotine Alcohol intake: current Alcohol intake frequency: 0-2 Drinks per Day Substance/Drug Use: never Household members: spouse Marital status: Current occupational status: retired Data Anesthesia Cardiac Studies: No Data to Display
--- NOTE | 2024-05-13 07:26 | W.PM.OPSUD ---
Surgery/Procedure H&P Update DATE OF PROCEDURE: May 13, 2024 DATE H&P PERFORMED: 04/17/24 H&P UPDATE INFORMATION: I have reviewed H&P completed within last 30 days, I have examined patient prior to procedure and No changes to prior documentation PREOP DIAGNOSIS: Polyp survailance PLANNED PROCEDURE: Operation Date: 05/13/24 07:30 Proposed Procedures p Colonoscopy 78300, G0105, D12.6(Not Applicable) - Vikash Webster, DO
[2024-05-13 08:12] VITALS: BP 154/107; PULSE 81; RESP 18; TEMP 36.1; O2SAT 96
[2024-05-13 08:25] VITALS: BP 145/118; PULSE 73; RESP 18; O2SAT 99
[2024-05-13 08:40] VITALS: BP 129/107; PULSE 71; RESP 17; O2SAT 97
--- NOTE | 2024-05-13 09:02 | ANE.PACU2 ---
Inpatient post-anesthesia follow up: Airway intact: Yes Vital signs: Temperature 97.0 F Pulse Rate 71 Respiratory Rate 17 Blood Pressure 129/107 Pulse Oximetry 97 Oxygen Delivery Me thod Room Air Oxygen Flow Rate 2 Fraction of Inspir ed Oxygen Hydration adequate: Yes Nausea and vomiting: No Pain level: 1 Mental status: Baseline
== END 2024-05-13 09:02 | disposition home or self-care (01) ==
PROVIDERS: PCP Family Medicine; Visit Provider Surgery
PROC: 0DJD8ZZ Inspection of Lower Intestinal Tract, Via Natural or Artificial Opening Endoscopic (ICD-10-PCS; CPT 45378; principal; 2024-05-13 07:30)
DX: Z12.11 Encounter for screening for malignant neoplasm of colon (principal); Z86.0100 Personal history of colon polyps, unspecified; I48.91 Unspecified atrial fibrillation; I10 Essential (primary) hypertension; N40.1 Benign prostatic hyperplasia with lower urinary tract symptoms; N13.8 Other obstructive and reflux uropathy
CPT/HCPCS: 45385; 88305; J2704; J3490; J7030

== ENCOUNTER → 2024-05-25 09:18 | Outpatient (BNVA) | payer MEDICARE, OTHER, SELFPAY | PROVIDERS: PCP Family Medicine; Visit Provider Surgery | DX: Z09 Encounter for follow-up examination after completed treatment for conditions other than malignant neoplasm (principal) | CPT/HCPCS: 99214 ==

== ENCOUNTER → 2024-11-26 08:05 | Outpatient (BNVA) | payer MEDICARE, OTHER, SELFPAY | PROVIDERS: PCP Family Medicine; Visit Provider Student in an Organized Health Care Education/Training Program | DX: D37.4 Neoplasm of uncertain behavior of colon (principal) | CPT/HCPCS: 99214 ==

== ENCOUNTER 2024-12-15 06:01 | Day surgery (SDC) | payer MEDICARE, OTHER, SELFPAY ==
[2024-12-15 06:18] VITALS: PULSE 86; RESP 16; TEMP 36.1; O2SAT 96; BMI 32.5
[2024-12-15 06:28] VITALS: BP 110/84
--- NOTE | 2024-12-15 06:33 | ECG_ITS ---
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 Measurements Intervals [place] Rate: 88 P: 0 AL: 0 QRS: 53 QRSD: 86 T: -5 QT: 333 QTc: 404 Interpretive Statements ATRIAL FIBRILLATION WITH ABERRANT CONDUCTION OR VENTRICULAR PREMATURE COMPLEXES NONSPECIFIC T-WAVE ABNORMALITY ABNORMAL RHYTHM ECG Compared to ECG 04/01/2020 10:19:55 Ventricular premature complex(es) now present Aberrant conduction of supraventricular beat(s) now present T-wave abnormality still present Electronically Signed On 12-17-2024 08:20:40 CDT by Mathieu Sánchez M.D. [id number] [id number]
[2024-12-15] MEDS: sodium chloride 0.9% 1,000 ML 15 ML IV (06:34)
--- NOTE | 2024-12-15 06:49 | ANES.PREANE2 ---
Pre-Anesthetic Assessment Height/Weight: Height 1.8 m Weight 105.687 kg Temp Pulse Resp BP Pulse Ox O2 Del Method 97 F L 86 16 110/84 96 Room Air 12/15/24 06:18 12/15/24 06:18 12/15/24 06:18 12/15/24 06:28 12/15/24 06:18 12/15/24 06:18 Preop Diagnosis: colonoscopy hx polyps Operation Date: 12/15/24 07:00 Proposed Procedures p Colonoscopy 96962 G0105 Z86.010(Not Applicable) - Driss Law MD Familial anesthetic complications: none Was Beta Jes taken within 24 hours: Yes Last intake: Intake Last Liquid Date 12/14/24 Last Liquid Time 19:00 Last Solid Date 12/13/24 Last Solid Time 09:00 Social No alcohol and No tobacco Exam alert, oriented x 3 and clear to auscultation bilaterally Airway Cervical ROM: within normal limits Mallampati: Class II Dentition: full History/ROS No significant history except as noted Pulmonary lungs clear with distant breath sounds CV/HEM Atrial Fibrillation Hepatic None reported GI None reported Metabolic None reported Musc/skel None reported Neuropsych None reported Anesthetic Plan ASA status: 2 Anesthesia: Anesthesia Evaluation and MAC Risk of > 500 ml blood loss (7ml/kg in children): No Medications/Allergies Home Medications ?Medication ?Instructions ?Recorded ?Confirmed ?Last Taken ?Type hydrochlorothiazide 12.5 mg tablet 12.5 mg PO DAILY 02/01/20 12/10/24 12/15/24 History latanoprost 0.005 % eye drops 1 drop ophthalmic (eye) DAILY 02/01/20 12/10/24 12/14/24 History (Xalatan) metoprolol succinate 100 mg 100 mg PO DAILY 02/01/20 12/10/24 12/15/24 History tablet,extended release 24 hr rivaroxaban 20 mg tablet (Xarelto) 20 mg PO DAILY 02/01/20 12/14/24 12/13/24 History Held on 05/13/24. Instructions: Resume on 05/16/24. timolol 0.5 % eye drops 1 drop ophthalmic (eye) BID 02/01/20 12/10/24 12/14/24 History lisinopril 10 mg tablet 10 mg PO DAILY 05/11/24 12/10/24 12/10/24 History tiotropium bromide 18 mcg capsule 1 cap inhalation DAILY 12/10/24 12/10/24 12/14/24 History with inhalation device (Spiriva with HandiHaler) Allergies Allergy/AdvReac Type Severity Reaction Status Date / Time No Known Allergies Allergy Verified 12/15/24 06:12 Current Medications Generic Name Dose Route Start Last Admin Trade Name Freq PRN Reason Stop Dose Admin Sodium Chloride 1,000 mls @ 15 mls/hr 12/15/24 06:04 12/15/24 06:34 Sodium Chloride 0.9% IV 12/16/24 06:03 15 mls/hr .Q24H PRN Administration COLONOSCOPY FLUIDS PFSH Anesthesia Medical History History of colon polyps BPH loc w urin obs/LUTS TURP 04/04/2020. Hypertension Afib Surgical History Hx of colonoscopy with polypectomy Status post recent transurethral resection of prostate Status post right inguinal hernia repair H/O colonoscopy 1.5 yrs ago H/O circumcision H/O repair of rotator cuff Family History Mother , 60's Lung disease Father , 40's- unknown No problems noted. Sister Cancer Brother Hypertension Other Atrial fibrillation Denies family history of Anesthesia complication Bleeding disorder Social History Smoking and tobacco/nicotine status: current every day tobacco/nicotine user (marijuana) Alcohol intake: current Alcohol intake frequency: 0-2 Drinks per Day Substance/Drug Use: current Household members: spouse Marital status: Current occupational status: retired
--- NOTE | 2024-12-15 07:03 | W.PM.OPSUD ---
Surgery/Procedure H&P Update DATE OF PROCEDURE: December 15, 2024 DATE H&P PERFORMED: 11/06/24 H&P UPDATE INFORMATION: I have reviewed H&P completed within last 30 days, I have examined patient prior to procedure and No changes to prior documentation PREOP DIAGNOSIS: colonoscopy hx polyps PLANNED PROCEDURE: Operation Date: 12/15/24 07:00 Proposed Procedures p Colonoscopy 36419 G0105 Z86.010(Not Applicable) - Driss Law MD
[2024-12-15 07:34] VITALS: BP 157/107; PULSE 83; RESP 20; TEMP 36.1; O2SAT 99
[2024-12-15 07:50] VITALS: BP 120/99; PULSE 77; RESP 18; O2SAT 97
--- NOTE | 2024-12-15 08:29 | ANE.PACU2 ---
Inpatient post-anesthesia follow up: Airway intact: Yes Vital signs: Temperature 97.0 F Pulse Rate 77 Respiratory Rate 18 Blood Pressure 120/99 Pulse Oximetry 97 Oxygen Delivery Me thod Room Air Oxygen Flow Rate Fraction of Inspir ed Oxygen Hydration adequate: Yes Nausea and vomiting: No Pain level: 1 Mental status: Baseline
== END 2024-12-15 08:29 | disposition home or self-care (01) ==
PROVIDERS: PCP Family Medicine; Visit Provider Student in an Organized Health Care Education/Training Program
PROC: 0DJD8ZZ Inspection of Lower Intestinal Tract, Via Natural or Artificial Opening Endoscopic (ICD-10-PCS; CPT 45378; principal; 2024-12-15 07:00)
DX: Z12.11 Encounter for screening for malignant neoplasm of colon (principal); K62.1 Rectal polyp; K57.30 Diverticulosis of large intestine without perforation or abscess without bleeding; I48.91 Unspecified atrial fibrillation; Z79.01 Long term (current) use of anticoagulants; Z79.899 Other long term (current) drug therapy; Z86.0101 Personal history of adenomatous and serrated colon polyps
CPT/HCPCS: 45380; 45385; 88305; 93005; J2704; J7030; J9999